=== PATIENT | male | born 1970 | race Caucasian/White ===

== ENCOUNTER 2017-12-11 10:03 | Emergency (ER) | payer OTHER ==
[~2017-12-11] VITALS: Ht 175.3 cm; Wt 80.3 kg
[2017-12-11] MEDS ORDERED: KEFLEX500 MG PO (12:48)
[2017-12-11 13:42] VITALS: BP 110/80
== END 2017-12-11 13:43 | disposition home or self-care (01) ==
LOC: EME 10:03
DX: S61.012A Laceration without foreign body of left thumb without damage to nail, initial encounter (principal); S61.314A Laceration without foreign body of right ring finger with damage to nail, initial encounter; W45.8XXA Other foreign body or object entering through skin, initial encounter; Y93.K1 Activity, walking an animal; Z23 Encounter for immunization
CPT/HCPCS: 73130; 99281; 99284